=== PATIENT | female | born 1930 | race African-American/Black ===

== ENCOUNTER 2020-11-02 10:58 | Inpatient (IN) | payer OTHER ==
[~2020-11-02] VITALS: Ht 163.8 cm; Wt 78.0 kg
[~2020-11-02 10:58] MED LIST: ASPI-867 PO; HYDR-4350 PO; LOSA50TA41 PO; METO-539 PO
[2020-11-02] MEDS ORDERED: SODIUM CHLORIDE 0.9% 1,000 ML IV ONE (12:00)
[2020-11-02 12:01] LABS: BASOPHILS % 0.5 % (0.0-2.0); EOSINOPHILS % 0.1 % (0.0-5.0); HEMOGLOBIN. 12.9 g/dL (12.0-16.0); LYMPHOCYTES % 13.4 % (20.0-50.0); MEAN CORPUSCULAR HEMOGLOBIN 31.3 pg (28.0-32.0); MEAN CORPUSCULAR VOLUME 92.3 fL (81.0-99.0); MEAN PLATELET VOLUME 10.4 fl (7.4-10.4); MONOCYTES % 9.1 % (2.0-8.0); NEUTROPHILS % 76.9 % (40.0-76.0); PLATELET 106 x1000/uL (130-400); RED BLOOD CELL COUNT 4.12 mill/uL (4.2-5.4); RED CELL DISTRIBUTION WIDTH 14.5 % (11.6-14.6)
[2020-11-02 12:04] LABS: CHLORIDE 107 mEq/L (98-107)
[2020-11-02] MEDS ORDERED: DILTIAZEM HCL 5MG/ML 5ML VIAL IV ONE ×2 (12:30→13:30)
[2020-11-02] MEDS ORDERED: ASPIRIN 325MG EC TABLET PO ONE (12:45)
[2020-11-02] MEDS ORDERED: DILTIAZEM HCL 125 MG in DEXT 5% WATER 100 ML IV ONE (14:15)
[2020-11-02] MEDS ORDERED: DILTIAZEM HCL 125 MG in DEXT 5% WATER 100 ML IV SCH (14:15)
[2020-11-02] MEDS ORDERED: LORAZEPAM 2MG/ML CPJ IV PRN (20:45)
[2020-11-02] MEDS ORDERED: MORPHINE SULFATE 2 MG/ML CPJ (NOT FOR IM USE) IV PRN (20:45)
[2020-11-02] MEDS ORDERED: MAGNESIUM/ALUMINUM HYDROXIDE/SIMETHICONE 30ML UDC PO PRN (20:45)
[2020-11-02] MEDS ORDERED: HYDROCODONE/ACETAMINOPHEN 10/325MG TABLET PO PRN (20:45)
[2020-11-02] MEDS ORDERED: GUAIFENESIN 200MG/10ML SUGAR FREE UDC PO PRN (20:45)
[2020-11-02] MEDS ORDERED: IPRATROPIUM/ALBUTEROL 0.5-3(2.5)MG/3ML NEB HHN PRN (20:45)
[2020-11-02] MEDS ORDERED: ONDANSETRON HCL 4MG/2ML INJ IV PRN (20:45)
[2020-11-02] MEDS ORDERED: DILTIAZEM HCL 125 MG in DEXT 5% WATER 100 ML IV PRN ×2 (20:45→21:15)
[2020-11-02] MEDS ORDERED: CLONIDINE 0.1MG TABLET PO PRN (20:45)
[2020-11-02] MEDS ORDERED: HYDRALAZINE 20MG/ML VIAL IV PRN (20:45)
[2020-11-02] MEDS ORDERED: DIPHENHYDRAMINE 50MG/ML VIAL IV PRN (20:45)
[2020-11-02] MEDS ORDERED: ENOXAPARIN 30MG/0.3ML SYR SUBCUT SCH (21:00)
[2020-11-02] MEDS: SODIUM CHLORIDE 0.9% INJ 3ML FLUSH IVF SCH (21:49)
[2020-11-03 00:32] LABS: CREATINE KINASE MB FRACTION 5.2 ng/mL (0.5-3.6)
[2020-11-03] MEDS: SODIUM CHLORIDE 0.9% INJ 3ML FLUSH IVF SCH ×2 (06:14→20:30)
[2020-11-03 06:15] LABS: BASOPHILS % 0.4 % (0.0-2.0); HEMOGLOBIN. 12.5 g/dL (12.0-16.0); LYMPHOCYTES % 17.3 % (20.0-50.0); MEAN CORPUSCULAR HEMOGLOBIN 30.8 pg (28.0-32.0); MEAN CORPUSCULAR VOLUME 91.6 fL (81.0-99.0); MEAN PLATELET VOLUME 9.3 fl (7.4-10.4); MONOCYTES % 10.4 % (2.0-8.0); NEUTROPHILS % 71.9 % (40.0-76.0); PLATELET 105 x1000/uL (130-400); RED BLOOD CELL COUNT 4.04 mill/uL (4.2-5.4); RED CELL DISTRIBUTION WIDTH 14.8 % (11.6-14.6)
[2020-11-03] MEDS: ACETAMINOPHEN 325MG TABLET PO PRN (07:07)
[2020-11-03 07:12] LABS: CLARITY URINE CLOUDY (CLEAR); COLOR URINE YELLOW (YELLOW); KETONES URINE 1+ (NEGATIVE); LEUKOCYTE ESTERASE URINE 3+ (NEGATIVE); NITRITE URINE POSITIVE (NEGATIVE); OCCULT BLOOD URINE 2+ (NEGATIVE); PROTEIN URINE 1+ (NEGATIVE); SPECIFIC GRAVITY URINE 1.017 (1.005-1.030)
[2020-11-03 07:36] LABS: *AMPHETAMINES SCREEN URINE NEGATIVE (NEGATIVE); *BARBITURATES SCREEN URINE NEGATIVE (NEGATIVE); *BENZODIAZEPINES SCREEN URINE NEGATIVE (NEGATIVE); *COCAINE SCREEN URINE NEGATIVE (NEGATIVE); CANNABINOID URINE SCREEN NEGATIVE (NEGATIVE); METHADONE URINE SCREEN NEGATIVE (NEGATIVE); OPIATES URINE SCREEN NEGATIVE (NEGATIVE); PHENCYCLIDINE URINE SCREEN NEGATIVE (NEGATIVE)
[2020-11-03 09:05] LABS: CHLORIDE 109 mEq/L (98-107)
[2020-11-03 09:20] LABS: CREATINE KINASE 296 IU/L (26-192)
[2020-11-03 09:24] LABS: CREATINE KINASE MB FRACTION 4.5 ng/mL (0.5-3.6)
[2020-11-03] MEDS ORDERED: ENOXAPARIN 80MG/0.8ML SYR SUBCUT SCH (12:00)
[2020-11-03] MEDS: DILTIAZEM HCL 60MG TABLET PO SCH ×2 (14:23→22:48)
[2020-11-03 15:40] LABS: INR 1.1; PROTHROMBIN TIME 11.5 sec (9.6-11.0)
[2020-11-03] MEDS: ENOXAPARIN 80MG/0.8ML SYR SUBCUT SCH (22:48)
[2020-11-04] VITALS (55 sets, daily range): BP systolic 86–154; BP diastolic 15–110
[2020-11-04] MEDS: ACETAMINOPHEN 325MG TABLET PO PRN (05:39)
[2020-11-04 05:40] LABS: BASOPHILS % 0.2 % (0.0-2.0); EOSINOPHILS % 0.1 % (0.0-5.0); HEMATOCRIT. 34.3 % (36.0-48.0); HEMOGLOBIN. 11.7 g/dL (12.0-16.0); LYMPHOCYTES % 13.9 % (20.0-50.0); MEAN CORPUSCULAR HEMOGLOBIN 31.2 pg (28.0-32.0); MEAN CORPUSCULAR VOLUME 91.5 fL (81.0-99.0); MEAN PLATELET VOLUME 9.2 fl (7.4-10.4); MONOCYTES % 10.5 % (2.0-8.0); NEUTROPHILS % 75.3 % (40.0-76.0); PLATELET 102 x1000/uL (130-400); RED BLOOD CELL COUNT 3.75 mill/uL (4.2-5.4); RED CELL DISTRIBUTION WIDTH 14.5 % (11.6-14.6)
[2020-11-04 05:50] LABS: T4 FREE 1.28 ng/dL (0.76-1.46)
[2020-11-04] MEDS: SODIUM CHLORIDE 0.9% INJ 3ML FLUSH IVF SCH (06:23)
[2020-11-04] MEDS: DILTIAZEM HCL 60MG TABLET PO SCH (06:23)
[2020-11-04] MEDS: ASPIRIN 81MG EC TABLET PO SCH (09:39)
[2020-11-04] MEDS: ENOXAPARIN 80MG/0.8ML SYR SUBCUT SCH ×2 (09:39→21:05)
[2020-11-04] MEDS ORDERED: POTASSIUM CHLORIDE 20MEQ/PACKET PO NR (13:00)
[2020-11-04] MEDS: DILTIAZEM HCL 90MG TABLET PO SCH ×2 (13:12→21:04)
[2020-11-05] VITALS (23 sets, daily range): BP systolic 93–149; BP diastolic 42–102
[2020-11-05 06:18] LABS: BASOPHILS % 0.3 % (0.0-2.0); EOSINOPHILS % 0.2 % (0.0-5.0); HEMATOCRIT. 36.2 % (36.0-48.0); HEMOGLOBIN. 12.3 g/dL (12.0-16.0); LYMPHOCYTES % 14.6 % (20.0-50.0); MEAN CORPUSCULAR HEMOGLOBIN 31.4 pg (28.0-32.0); MEAN CORPUSCULAR VOLUME 92.3 fL (81.0-99.0); MEAN PLATELET VOLUME 9.1 fl (7.4-10.4); MONOCYTES % 9.3 % (2.0-8.0); NEUTROPHILS % 75.6 % (40.0-76.0); PLATELET 114 x1000/uL (130-400); RED BLOOD CELL COUNT 3.93 mill/uL (4.2-5.4); RED CELL DISTRIBUTION WIDTH 14.4 % (11.6-14.6)
[2020-11-05 06:32] LABS: CHLORIDE 108 mEq/L (98-107)
[2020-11-05] MEDS: DILTIAZEM HCL 90MG TABLET PO SCH ×3 (07:42→21:00)
[2020-11-05] MEDS: ACETAMINOPHEN 325MG TABLET PO PRN ×2 (09:47→23:30)
[2020-11-05] MEDS: ASPIRIN 81MG EC TABLET PO SCH (09:47)
[2020-11-05] MEDS: ENOXAPARIN 80MG/0.8ML SYR SUBCUT SCH ×2 (09:47→20:59)
[2020-11-06 04:00] VITALS: BP 117/74
[2020-11-06] MEDS: DILTIAZEM HCL 90MG TABLET PO SCH ×3 (05:18→20:54)
[2020-11-06 08:00] VITALS: BP 127/63
[2020-11-06] MEDS: ASPIRIN 81MG EC TABLET PO SCH (08:13)
[2020-11-06] MEDS: ENOXAPARIN 80MG/0.8ML SYR SUBCUT SCH ×2 (08:13→20:56)
[2020-11-06 09:00] VITALS: BP 127/63
[2020-11-06 12:00] VITALS: BP 112/61
[2020-11-06] MEDS ORDERED: DILTIAZEM HCL 5MG/ML 5ML VIAL IV NR (15:00)
[2020-11-06] MEDS: ACETAMINOPHEN 325MG TABLET PO PRN (15:33)
[2020-11-06 16:00] VITALS: BP 116/68
[2020-11-06 20:00] VITALS: BP 112/52
[2020-11-07 00:40] VITALS: BP 120/64
[2020-11-07 04:00] VITALS: BP 136/79
[2020-11-07] MEDS: DILTIAZEM HCL 90MG TABLET PO SCH ×3 (05:27→21:29)
[2020-11-07 08:00] VITALS: BP 108/60
[2020-11-07] MEDS: ASPIRIN 81MG EC TABLET PO SCH (09:14)
[2020-11-07] MEDS: ENOXAPARIN 80MG/0.8ML SYR SUBCUT SCH ×2 (09:15→21:28)
[2020-11-07] MEDS ORDERED: DIGOXIN 500MCG/2ML AMP IV ONE (10:16)
[2020-11-07] MEDS ORDERED: DIGOXIN 500MCG/2ML AMP IV PRN (10:30)
[2020-11-07 12:00] VITALS: BP 110/63
[2020-11-07 16:00] VITALS: BP 140/67
[2020-11-07] MEDS: ACETAMINOPHEN 325MG TABLET PO PRN (16:17)
[2020-11-07] MEDS: DILTIAZEM HCL 5MG/ML 5ML VIAL IV PRN (19:44)
[2020-11-07 20:00] VITALS: BP 109/61
[2020-11-08] VITALS (7 sets, daily range): BP systolic 99–160; BP diastolic 39–83
[2020-11-08] MEDS: DILTIAZEM HCL 90MG TABLET PO SCH ×5 (07:08→23:12)
[2020-11-08] MEDS ORDERED: DILTIAZEM HCL 5MG/ML 5ML VIAL IV NR (08:15)
[2020-11-08] MEDS: ASPIRIN 81MG EC TABLET PO SCH (08:43)
[2020-11-08] MEDS: ENOXAPARIN 80MG/0.8ML SYR SUBCUT SCH ×2 (08:44→21:54)
[2020-11-08] MEDS: DOCUSATE SODIUM 100MG CAPSULE PO PRN (13:29)
[2020-11-09 00:40] VITALS: BP 116/64
[2020-11-09 04:00] VITALS: BP 130/94
[2020-11-09] MEDS: DILTIAZEM HCL 90MG TABLET PO SCH ×3 (06:36→18:53)
[2020-11-09] MEDS: ENOXAPARIN 80MG/0.8ML SYR SUBCUT SCH ×2 (07:20→21:13)
[2020-11-09 08:00] VITALS: BP 102/64
[2020-11-09] MEDS: ASPIRIN 81MG EC TABLET PO SCH (08:19)
[2020-11-09] MEDS: DILTIAZEM HCL 5MG/ML 5ML VIAL IV PRN ×2 (09:01→19:09)
[2020-11-09 12:00] VITALS: BP 99/62
[2020-11-09 16:00] VITALS: BP 99/67
[2020-11-09 20:00] VITALS: BP 110/75
[2020-11-10] VITALS: BP 121/79
[2020-11-10] MEDS: DILTIAZEM HCL 90MG TABLET PO SCH ×5 (00:22→23:18)
[2020-11-10 04:00] VITALS: BP 100/67
[2020-11-10 08:00] VITALS: BP 130/58
[2020-11-10] MEDS: ENOXAPARIN 80MG/0.8ML SYR SUBCUT SCH ×2 (08:56→21:18)
[2020-11-10] MEDS: ASPIRIN 81MG EC TABLET PO SCH (08:56)
[2020-11-10 12:00] VITALS: BP 122/80
[2020-11-10] MEDS ORDERED: BISACODYL 10MG SUPP PR SCH (13:30)
[2020-11-10 13:48] LABS: BASOPHILS % 0.5 % (0.0-2.0); EOSINOPHILS % 1.5 % (0.0-5.0); HEMATOCRIT. 34.4 % (36.0-48.0); HEMOGLOBIN. 11.4 g/dL (12.0-16.0); LYMPHOCYTES % 11.1 % (20.0-50.0); MEAN CORPUSCULAR HEMOGLOBIN 31.1 pg (28.0-32.0); MEAN CORPUSCULAR VOLUME 93.9 fL (81.0-99.0); MONOCYTES % 13.3 % (2.0-8.0); NEUTROPHILS % 73.6 % (40.0-76.0); PLATELET 233 x1000/uL (130-400); RED BLOOD CELL COUNT 3.66 mill/uL (4.2-5.4); RED CELL DISTRIBUTION WIDTH 14.4 % (11.6-14.6)
[2020-11-10] MEDS: POLYETHYLENE GLYCOL 3350 (17GM) 1 DOSE PACK PO PRN (13:49)
[2020-11-10] MEDS: DILTIAZEM HCL 5MG/ML 5ML VIAL IV PRN ×2 (13:51→23:11)
[2020-11-10] MEDS ORDERED: DIGOXIN 500MCG/2ML AMP IV ONE (14:02)
[2020-11-10] MEDS: DIGOXIN 500MCG/2ML AMP IV PRN ×2 (14:57→18:44)
[2020-11-10 16:00] VITALS: BP 112/61
[2020-11-10 20:00] VITALS: BP 108/56
[2020-11-11] VITALS: BP 122/54
[2020-11-11 04:00] VITALS: BP 128/74
[2020-11-11] MEDS: DILTIAZEM HCL 5MG/ML 5ML VIAL IV PRN (04:41)
[2020-11-11] MEDS: DILTIAZEM HCL 90MG TABLET PO SCH ×3 (05:01→17:38)
[2020-11-11] MEDS: ASPIRIN 81MG EC TABLET PO SCH (10:38)
[2020-11-11] MEDS: ENOXAPARIN 80MG/0.8ML SYR SUBCUT SCH ×2 (10:38→20:36)
[2020-11-11] MEDS: POLYETHYLENE GLYCOL 3350 (17GM) 1 DOSE PACK PO PRN (10:41)
[2020-11-11] MEDS: DOCUSATE SODIUM 100MG CAPSULE PO PRN ×2 (10:42→17:39)
[2020-11-11 12:00] VITALS: BP 112/74
[2020-11-11] MEDS ORDERED: DIGOXIN 500MCG/2ML AMP IV NR (13:30)
[2020-11-11] MEDS: NEBIVOLOL HCL 5 MG TABLET PO SCH (17:39)
[2020-11-11 20:00] VITALS: BP 122/57
[2020-11-12 00:05] VITALS: BP 133/65
[2020-11-12] MEDS: DILTIAZEM HCL 90MG TABLET PO SCH ×3 (00:36→12:30)
[2020-11-12 04:03] VITALS: BP 143/67
[2020-11-12 07:20] LABS: BASOPHILS % 1.3 % (0.0-2.0); EOSINOPHILS % 2.1 % (0.0-5.0); HEMATOCRIT. 32.7 % (36.0-48.0); LYMPHOCYTES % 14.7 % (20.0-50.0); MEAN CORPUSCULAR HEMOGLOBIN 31.4 pg (28.0-32.0); MEAN PLATELET VOLUME 8.4 fl (7.4-10.4); MONOCYTES % 12.8 % (2.0-8.0); NEUTROPHILS % 69.1 % (40.0-76.0); PLATELET 268 x1000/uL (130-400); RED BLOOD CELL COUNT 3.52 mill/uL (4.2-5.4); RED CELL DISTRIBUTION WIDTH 14.2 % (11.6-14.6)
[2020-11-12 07:22] LABS: CHLORIDE 107 mEq/L (98-107)
[2020-11-12 07:50] LABS: DIGOXIN 1.5 ng/mL (0.9-2.0)
[2020-11-12 08:00] VITALS: BP 94/48
[2020-11-12] MEDS: NEBIVOLOL HCL 5 MG TABLET PO SCH (08:49)
[2020-11-12] MEDS: ENOXAPARIN 80MG/0.8ML SYR SUBCUT SCH ×2 (08:56→21:32)
[2020-11-12] MEDS: ASPIRIN 81MG EC TABLET PO SCH (08:56)
[2020-11-12 12:30] VITALS: BP 102/53
[2020-11-12] MEDS: ACETAMINOPHEN 325MG TABLET PO PRN ×2 (13:23→15:09)
[2020-11-12 16:30] VITALS: BP 127/60
[2020-11-12 20:00] VITALS: BP 129/60
[2020-11-12] MEDS ORDERED: ATORVASTATIN CALCIUM 40MG TABLET PO SCH (21:00)
[2020-11-12] MEDS: METOPROLOL TARTRATE 50MG TABLET PO SCH (21:31)
[2020-11-13] VITALS: BP 136/72
[2020-11-13 04:00] VITALS: BP 120/63
[2020-11-13 08:00] VITALS: BP 140/101
[2020-11-13] MEDS: METOPROLOL TARTRATE 50MG TABLET PO SCH (08:38)
[2020-11-13] MEDS: ASPIRIN 81MG EC TABLET PO SCH (08:38)
[2020-11-13] MEDS: ENOXAPARIN 80MG/0.8ML SYR SUBCUT SCH (08:38)
[2020-11-13] MEDS ORDERED: LOSARTAN POTASSIUM 25 MG TABLET PO SCH (09:00)
[2020-11-13 12:00] VITALS: BP 131/96
[2020-11-13 16:00] VITALS: BP 125/90
== END 2020-11-13 16:30 | disposition home health service (06) | DRG 177 ==
LOC: ER 11:10 → MICUSO 15:09 → EDBEDREQSVC 15:12 → EDBEDREQTM 15:25 → CVICU 11-04 02:11 → 7EST 11-05 22:58 → 7WST 11-10 11:12
PROVIDERS: ADMIT Internal Medicine; ATTEND Internal Medicine
PROC: 05HY33Z Insertion of Infusion Device into Upper Vein, Percutaneous Approach (ICD-10-PCS; principal; 2020-11-04)
PROC: B54MZZA Ultrasonography of Right Upper Extremity Veins, Guidance (ICD-10-PCS; 2020-11-04)
DX: U07.1 COVID-19 (principal); G93.41 Metabolic encephalopathy; J96.90 Respiratory failure, unspecified, unspecified whether with hypoxia or hypercapnia; R65.10 Systemic inflammatory response syndrome (SIRS) of non-infectious origin without acute organ dysfunction; I48.20 Chronic atrial fibrillation, unspecified; I10 Essential (primary) hypertension; E78.5 Hyperlipidemia, unspecified; Z96.653 Presence of artificial knee joint, bilateral; R77.8 Other specified abnormalities of plasma proteins; D72.829 Elevated white blood cell count, unspecified; Z86.73 Personal history of transient ischemic attack (TIA), and cerebral infarction without residual deficits; Z79.82 Long term (current) use of aspirin; Z79.01 Long term (current) use of anticoagulants; Z79.899 Other long term (current) drug therapy; I25.2 Old myocardial infarction; R53.1 Weakness
CPT/HCPCS: 36415; 71045; 76937; 80048; 80053; 80162; 80305; 81003; 82550; 82553; 83880; 84439; 84443; 84481; 84484; 85025; 87635; 93005; 93970; 96365; 99291; C1725; C1769; J0360; J1160; J1650; J3490; J7030; J7060